=== PATIENT | male | born 1970 | race Caucasian/White ===

== ENCOUNTER 2020-09-04 02:57 | Emergency (ER) | payer MEDICAID, OTHER ==
[~2020-09-04] VITALS: Ht 180.3 cm; Wt 104.5 kg
[~2020-09-04 02:57] MED LIST: GABA-1181 PO
[2020-09-04 03:05] VITALS: BP 125/49
[2020-09-04] MEDS ORDERED: ONDANSETRON HCL 4 MG TABLET PO ONE (05:15)
[2020-09-04] MEDS ORDERED: ACETAMINOPHEN 500 MG TABLET PO ONE (05:15)
[2020-09-04 05:32] LABS: COVID AG,FIA SOURCE NASOPHARYNGEAL
== END 2020-09-04 06:48 | disposition home or self-care (01) ==
LOC: EMS 02:58
DX: U07.1 COVID-19 (principal); M79.10 Myalgia, unspecified site; R11.0 Nausea; I10 Essential (primary) hypertension
CPT/HCPCS: 87426; 99283; C9803; Q0162; U0003

== ENCOUNTER 2020-09-28 16:33 | Emergency (ER) | payer OTHER ==
[~2020-09-28] VITALS: Ht 180.3 cm; Wt 102.3 kg
[2020-09-28] MEDS ORDERED: MELO-106 PO (16:47)
[2020-09-28] MEDS ORDERED: BACL10TA PO (16:47)
[2020-09-28] MEDS ORDERED: HYDR25TA PO (16:47)
[2020-09-28] MEDS ORDERED: KETOROLAC TROMETHAMINE 30 MG/ML VIAL IM ONE (20:00)
[2020-09-28] MEDS ORDERED: HYDROCODONE/ACETAMINOPHEN 5-325 MG TABLET PO ONE (20:00)
[2020-09-28 20:25] VITALS: BP 127/70
== END 2020-09-28 20:29 | disposition home or self-care (01) ==
LOC: EMS 16:34
DX: M54.5 Low back pain (principal); I10 Essential (primary) hypertension; Z79.899 Other long term (current) drug therapy
CPT/HCPCS: 96372; 99283; J1885

== ENCOUNTER 2023-05-27 12:59 | Inpatient (IN) | payer OTHER ==
[~2023-05-27] VITALS: Ht 180.3 cm; Wt 99.4 kg
[~2023-05-27 12:59] MED LIST changes: +AMOX1TAB15 PO; +HYDR25TA PO; +MELO-106 PO
[2023-05-27] MEDS ORDERED: SODIUM CHLORIDE 0.9% 1,000 ML IV ONE ×2 (14:30→19:30)
[2023-05-27] MEDS ORDERED: MORPHINE SULFATE 2 MG/ML SYRINGE IVP ONE (14:30)
[2023-05-27] MEDS ORDERED: FAMOTIDINE 20 MG/2 ML VIAL IVP ONE (14:30)
[2023-05-27 14:36] LABS: BASOPHILS % (AUTO) 0.5 % (0.0-2.0); EOSINOPHILS % (AUTO) 0.3 % (1.0-6.0); HEMATOCRIT 47.6 % (41-53); HEMOGLOBIN 16.3 g/dL (13.5-17.5); LYMPHOCYTES # (AUTO) 1.4 K/uL (1.0-4.8); LYMPHOCYTES % (AUTO) 14.7 % (22.0-44.0); MEAN CORPUSCULAR HEMOGLOBIN 30.9 pg (26.0-34.0); MEAN CORPUSCULAR HGB CONC 34.3 G/dL (31.0-37.0); MEAN CORPUSCULAR VOLUME 90 fL (80-100); MONOCYTES # (AUTO) 0.6 K/uL (0.1-1.0); MONOCYTES % (AUTO) 6.5 % (2.0-9.0); NEUTROPHILS # (AUTO) 7.4 K/uL (1.8-7.7); PLATELET COUNT (AUTO) 243 K/uL (150-450); RED BLOOD CELL COUNT(AUTO) 5.28 MIL/uL (4.50-5.90); RED CELL DISTRIBUTION WIDTH 13.9 % (11.5-14.5); WHITE BLOOD COUNT (AUTO) 9.5 K/uL (4.5-11.0)
[2023-05-27 14:48] LABS: ANION GAP 9 mmol/L (8-16); CALCIUM, TOTAL 9.5 mg/dL (8.8-10.5); CARBON DIOXIDE 29 mmol/L (22-29); CHLORIDE 104 mmol/L (98-107); CREATININE 0.87 mg/dL (0.60-1.30); GLOMERULAR FILTR. RATE CALC > 60 mL/min (>60); GLUCOSE,RANDOM 114 mg/dL (70-110); POTASSIUM 4.7 mmol/L (3.5-5.1); SODIUM SERUM 142 mmol/L (136-145); UREA NITROGEN, BLOOD 11 mg/dL (7-18)
[2023-05-27 14:54] LABS: ALANINE AMINOTRANSFERASE 127 U/L (12-78); ALBUMIN 3.8 g/dL (3.4-5.0); ALKALINE PHOSPHATASE 122 U/L (46-116); ASPARTATE AMINOTRANSFERASE 147 U/L (15-37); BILIRUBIN,TOTAL 0.6 mg/dL (0.1-1.0); LIPASE 26 U/L (16-77); TOTAL PROTEIN, SERUM 7.3 g/dL (6.4-8.2)
[2023-05-27] MEDS ORDERED: IOHEXOL 350 MG/ML 100 ML VIAL ONE (15:10)
[2023-05-27] MEDS ORDERED: SODIUM CHLORIDE 0.9% 100 ML ONE (15:10)
[2023-05-27 15:59] LABS: APPEARANCE,URINE CLEAR (CLEAR); BILIRUBIN,URINE NEGATIVE (NEGATIVE); COLOR,URINE YELLOW (YELLOW); GLUCOSE, URINE (UA) NEGATIVE (NEGATIVE); KETONES,URINE TRACE mg/dL (NEGATIVE); LEUKOCYTE ESTERASE ,URINE NEGATIVE (NEGATIVE); NITRATE,URINE NEGATIVE (NEGATIVE); OCCULT BLOOD,URINE NEGATIVE (NEGATIVE); PH,URINE 5.5 (5.0-8.0); PROTEIN,URINE NEGATIVE (NEGATIVE); SPECIFIC GRAVITIY, URINE 1.019 (1.003-1.030); UROBILINOGEN,URINE <=1.0 mg/dL (<=1.0)
[2023-05-27] MEDS ORDERED: DOCUSATE SODIUM 100 MG CAPSULE PO ONE (16:45)
[2023-05-27] MEDS ORDERED: DOCU-385 PO (16:47)
[2023-05-27] MEDS ORDERED: KETOROLAC TROMETHAMINE 30 MG/ML VIAL IVP ONE (18:45)
[2023-05-27] MEDS ORDERED: LIDOCAINE 2% 6 ML JELLY TP ONE (19:45)
[2023-05-27] MEDS ORDERED: ACETAMINOPHEN 325 MG TABLET PO PRN (20:15)
[2023-05-27] MEDS ORDERED: ONDANSETRON HCL 4 MG/2 ML VIAL IVP PRN (20:15)
[2023-05-27] MEDS: DOCUSATE SODIUM 100 MG CAPSULE PO SCH (21:00)
[2023-05-27 21:26] LABS: COVID AG,FIA SOURCE NASAL SWAB
[2023-05-27 21:47] LABS: SARS-COV2 (COVID) ANTIGEN,FIA Negative (Negative)
[2023-05-27 22:21] VITALS: BP 147/79; PULSE 56; RESP 20; TEMP 97.6
[2023-05-27] MEDS: RINGERS SOLUTION,LACTATED 1,000 ML IV SCH (23:29)
[2023-05-27] MEDS: HYDROmorphone HCL 2 MG/ML SYRINGE IVP PRN (23:30)
[2023-05-28 04:40] VITALS: BP 167/100; PULSE 52; RESP 20; TEMP 98.3
[2023-05-28] MEDS: HYDROmorphone HCL 2 MG/ML SYRINGE IVP PRN ×2 (04:45→21:36)
[2023-05-28 05:43] VITALS: BP 148/82; PULSE 47; RESP 18
[2023-05-28 06:35] LABS: BASOPHILS % (AUTO) 0.2 % (0.0-2.0); EOSINOPHILS % (AUTO) 0 % (1.0-6.0); HEMATOCRIT 47.1 % (41-53); HEMOGLOBIN 16.2 g/dL (13.5-17.5); LYMPHOCYTES # (AUTO) 1.3 K/uL (1.0-4.8); LYMPHOCYTES % (AUTO) 9.1 % (22.0-44.0); MEAN CORPUSCULAR HEMOGLOBIN 30.6 pg (26.0-34.0); MEAN CORPUSCULAR HGB CONC 34.4 G/dL (31.0-37.0); MEAN CORPUSCULAR VOLUME 89 fL (80-100); MONOCYTES # (AUTO) 1.4 K/uL (0.1-1.0); MONOCYTES % (AUTO) 9.7 % (2.0-9.0); NEUTROPHILS # (AUTO) 11.4 K/uL (1.8-7.7); PLATELET COUNT (AUTO) 251 K/uL (150-450); RED BLOOD CELL COUNT(AUTO) 5.29 MIL/uL (4.50-5.90); RED CELL DISTRIBUTION WIDTH 13.8 % (11.5-14.5); WHITE BLOOD COUNT (AUTO) 14.1 K/uL (4.5-11.0)
[2023-05-28 07:17] LABS: ANION GAP 12 mmol/L (8-16); CALCIUM, TOTAL 8.6 mg/dL (8.8-10.5); CARBON DIOXIDE 24 mmol/L (22-29); CHLORIDE 103 mmol/L (98-107); CREATININE 0.77 mg/dL (0.60-1.30); GLOMERULAR FILTR. RATE CALC > 60 mL/min (>60); GLUCOSE,RANDOM 127 mg/dL (70-110); POTASSIUM 3.7 mmol/L (3.5-5.1); SODIUM SERUM 139 mmol/L (136-145); UREA NITROGEN, BLOOD 14 mg/dL (7-18)
[2023-05-28] MEDS: RINGERS SOLUTION,LACTATED 1,000 ML IV SCH ×3 (08:36→21:36)
[2023-05-28] MEDS: DOCUSATE SODIUM 100 MG CAPSULE PO SCH ×2 (08:41→21:00)
[2023-05-28 08:57] LABS: ALANINE AMINOTRANSFERASE 109 U/L (12-78); ALBUMIN 3.5 g/dL (3.4-5.0); ALKALINE PHOSPHATASE 103 U/L (46-116); ASPARTATE AMINOTRANSFERASE 95 U/L (15-37); BILIRUBIN,TOTAL 0.7 mg/dL (0.1-1.0); TOTAL PROTEIN, SERUM 6.9 g/dL (6.4-8.2)
[2023-05-28] MEDS ORDERED: BISACODYL 10 MG RECTAL RECTAL SUPPOSITORY PR ONE (09:00)
[2023-05-28 10:12] VITALS: BP 151/76; PULSE 58; RESP 18; TEMP 97.6
[2023-05-28] MEDS: MINERAL OIL 30 ML UDCUP NG SCH ×3 (10:20→21:20)
[2023-05-28] MEDS: METOCLOPRAMIDE HCL 5 MG/ML 2 ML VIAL IVP SCH ×3 (10:21→21:20)
[2023-05-28 17:06] VITALS: BP 139/80; PULSE 60; RESP 18; TEMP 98.8
[2023-05-28 19:40] VITALS: BP 144/69; PULSE 55; RESP 18; TEMP 98.7
[2023-05-29] MEDS: HEPARIN SODIUM,PORCINE 5,000 UNITS/ML VIAL SQ SCH ×3 (01:03→15:54)
[2023-05-29] MEDS: METOCLOPRAMIDE HCL 5 MG/ML 2 ML VIAL IVP SCH ×4 (03:52→20:37)
[2023-05-29 04:10] VITALS: BP 153/83; PULSE 48; RESP 16; TEMP 97.6
[2023-05-29] MEDS: RINGERS SOLUTION,LACTATED 1,000 ML IV SCH (04:22)
[2023-05-29 07:50] VITALS: BP 145/72; PULSE 52; RESP 20; TEMP 98.5
[2023-05-29] MEDS: DOCUSATE SODIUM 100 MG CAPSULE PO SCH ×2 (09:00→20:40)
[2023-05-29] MEDS: MINERAL OIL 30 ML UDCUP NG SCH ×3 (09:12→20:35)
[2023-05-29 15:18] VITALS: BP 152/88; PULSE 50; RESP 20; TEMP 98.7
[2023-05-29 19:40] VITALS: BP 144/95; PULSE 47; RESP 20; TEMP 99.2
[2023-05-30] MEDS: HEPARIN SODIUM,PORCINE 5,000 UNITS/ML VIAL SQ SCH ×2 (00:31→08:00)
[2023-05-30] MEDS: METOCLOPRAMIDE HCL 5 MG/ML 2 ML VIAL IVP SCH ×2 (03:14→08:55)
[2023-05-30 04:10] VITALS: BP 138/76; PULSE 51; RESP 20; TEMP 98.6
[2023-05-30 07:22] VITALS: BP 155/83; PULSE 48; RESP 20; TEMP 98.7
[2023-05-30] MEDS: MINERAL OIL 30 ML UDCUP NG SCH (08:54)
[2023-05-30] MEDS: DOCUSATE SODIUM 100 MG CAPSULE PO SCH (08:57)
[2023-05-30] MEDS ORDERED: AMLO-257 PO (09:46)
[2023-05-30] MEDS ORDERED: BISA-151 PO (09:46)
== END 2023-05-30 14:50 | disposition home or self-care (01) | DRG 247 ==
LOC: EMS 13:30 → 6N 20:26
PROVIDERS: ADMIT Internal Medicine; ATTEND Internal Medicine
PROC: 0D9670Z Drainage of Stomach with Drainage Device, Via Natural or Artificial Opening (ICD-10-PCS; principal; 2023-05-27)
DX: K56.51 Intestinal adhesions [bands], with partial obstruction (principal); R65.10 Systemic inflammatory response syndrome (SIRS) of non-infectious origin without acute organ dysfunction; R74.01 Elevation of levels of liver transaminase levels; F17.210 Nicotine dependence, cigarettes, uncomplicated; Z20.822 Contact with and (suspected) exposure to COVID-19; I10 Essential (primary) hypertension; Z90.49 Acquired absence of other specified parts of digestive tract; Z79.899 Other long term (current) drug therapy; Z87.820 Personal history of traumatic brain injury
CPT/HCPCS: 71045; 74022; 74177; 80048; 80053; 80076; 81003; 83690; 83735; 85025; 99285; J1170; J1644; J1885; J2270; J2405; J2765; J3490; J7030; J7050; J7120; Q9967; 36415-L1; 36415-TC

== ENCOUNTER 2023-06-24 11:43 | Emergency (ER) | payer OTHER ==
[~2023-06-24] VITALS: Ht 180.3 cm; Wt 102.3 kg
[~2023-06-24 11:43] MED LIST changes: +AMLO-257 PO; -AMOX1TAB15 PO; +BISA-151 PO; -GABA-1181 PO; -HYDR25TA PO; -MELO-106 PO
[2023-06-24 11:44] VITALS: TEMP 98.5
[2023-06-24] MEDS ORDERED: KETOROLAC TROMETHAMINE 60 MG/2 ML VIAL IM ONE (14:00)
[2023-06-24] MEDS ORDERED: METHOCARBAMOL 500 MG TABLET PO ONE (15:00)
[2023-06-24 15:27] VITALS: BP 132/79; PULSE 76; RESP 16
[2023-06-24] MEDS ORDERED: METH-659 PO (15:45)
== END 2023-06-24 16:13 | disposition home or self-care (01) ==
LOC: EMS 13:15
DX: G89.29 Other chronic pain (principal); M54.50 Low back pain, unspecified; I10 Essential (primary) hypertension; F17.210 Nicotine dependence, cigarettes, uncomplicated; F12.90 Cannabis use, unspecified, uncomplicated; Z98.890 Other specified postprocedural states
CPT/HCPCS: 99283; 96372; J1885